=== PATIENT | male | born 1940 | race Caucasian/White ===

== ENCOUNTER → 2016-10-07 | Outpatient (CLI) | payer OTHER | LOC: BRMIMAGING 08:52 | PROVIDERS: ATTEND Family Medicine | DX: K76.0 Fatty (change of) liver, not elsewhere classified (principal); R94.5 Abnormal results of liver function studies | CPT/HCPCS: 76705-PO ==

== ENCOUNTER → 2017-03-18 | Outpatient (CLI) | payer OTHER | LOC: BRMIMAGING 11:15 | PROVIDERS: ATTEND Family Medicine | DX: J18.9 Pneumonia, unspecified organism (principal); J47.9 Bronchiectasis, uncomplicated | CPT/HCPCS: 71020-PO ==

== ENCOUNTER → 2017-03-29 | Outpatient (CLI) | payer OTHER | LOC: BRMIMAGING 13:59 | PROVIDERS: ATTEND Family Medicine | DX: J98.4 Other disorders of lung (principal) | CPT/HCPCS: 71020-PO ==